=== PATIENT | female | born 1945 | race Caucasian/White ===

== ENCOUNTER → 2017-11-10 07:35 | Outpatient (CLI) | payer MEDICARE, BC | END | disposition home or self-care (01) | LOC: D.RAD 07:35 | DX: R13.10 Dysphagia, unspecified (principal) ==

== ENCOUNTER → 2019-06-29 12:51 | Outpatient (CLI) | payer MEDICARE, BC ==
--- NOTE | 2019-07-02 10:47 | EC ---
PATIENT:KAI FLETCHER DATE OF SERVICE: 06/29/19 SEX: F MEDICAL RECORD: [id number] DATE OF : 41 [facility] AGE [facility] PAT[facility]: 73 ADMISSION DATE: 06/29/19 REFERRING PHYSICIAN: INTERPRETING PHYSICIAN: MEGHANN MIRAMONTES MD ECHOCARDIOGRAM REPORT ECHO CHARGES 4 ECHO COMPLETE Date: 06/29/19 CLINICAL DIAGNOSIS: MITRAL REGURG ECHOCARDIOGRAPHIC MEASUREMENTS (adult normal given) AC root (d.<3.7cm) 3.3 cm LV Septum d (<1.2 cm> 1.2 cm Valve Excursion 1.6 cm LV Septum (systole) 1.4 cm Left Atria (s.<4.0cm> 3.6 cm LVPW d(<1.2cm) 1.3 cm RV (d.<2.3cm) 3.4 cm LVPW (sytole) 1.7 cm LV diastole(<5.6CM) 4.4 cm MV E-F(>70mm/sec) cm LV systole 2.9 cm LVOT Diameter 1.8 cm MV exc.(>10mm) 1.2 cm Est.ejection fraction (50-75%) % DOPPLER: LVIT cm/sec A 72.0 cm/sec E 51.0 cm/sec LA cm/sec RVSP 33 mmHg LVOT 103 cm/sec AOP1/2T m/s Asc. Ao 153 cm/sec RVOT 82 cm/sec RA cm/sec PA 128 cm/sec AV Gradient Peak 9.31 mmHg AV Mean 4.92 mmHg AV Area 1.7 cm MV Gradient Peak 4.88 mmHg MV Mean 2.15 mmHg MV Area cm COMMENTS: Service Line Layer: Mariely LESTER Business Account Executive: 1 Dr. Miramontes TAPE# PACS Pericardial Effusion N DATE OF SERVICE: 06/29/2019 PROCEDURE: Echocardiogram. FINDINGS: 1. Left ventricular chamber size is within normal limits. Left ventricular systolic function is normal. Overall ejection fraction estimated at 60% to 65%. 2. Left atrium, right atrium, right ventricular chamber sizes are within normal limits. 3. Valvular structures have normal structure and motion. ECHOCARDIOGRAM REPORT [id number] KAI FLETCHER 4. Doppler interrogation reveals trace mitral regurgitation, mild tricuspid regurgitation, no other valvular insufficiency or stenosis. Pulmonary systolic pressure estimated at 33 mmHg. 5. No evidence of pericardial effusion or left ventricular thrombus. TRANSINT:[id number] Voice Confirmation ID: [id number] DOCUMENT ID: [id number] MEGHANN MIRAMONTES MD at 1047 CC: [id number] DICTATION DATE: 06/30/19 1230 CLASSROOM TEACHER: 06/30/19 1258 DEP CLI 06/29/19 [facility] [address] [id number]
== END | disposition home or self-care (01) ==
LOC: D.HCCARDIO 12:51
PROVIDERS: ATTEND Internal Medicine Interventional Cardiology
DX: I34.0 Nonrheumatic mitral (valve) insufficiency (principal)